=== PATIENT | female | born 1990 | race Caucasian/White ===

== ENCOUNTER 2021-12-03 01:43 | Emergency (ER) | payer OTHER ==
[~2021-12-03] VITALS: Ht 167.6 cm; Wt 61.2 kg
--- NOTE | 2021-12-03 02:28 | NUR ---
Dr. Oropeza at bedside for MSE
[2021-12-03] MEDS ORDERED: OXYC-128 PO (02:49)
[2021-12-03] MEDS ORDERED: IBUPROFEN 600 MG TABLET PO ONE (03:00)
[2021-12-03 03:09] VITALS: BP 122/66
--- NOTE | 2021-12-03 03:09 | NUR ---
Patient discharged to home in stable condition. Written and verbal after care instructions given. Patient verbalizes understanding of instructions. Stressed follow up or return to ER for worsening s/s.
[2021-12-03] MEDS ORDERED: IBUPROFEN 600 MG TABLET ONE (03:10)
== END 2021-12-03 03:11 | disposition home or self-care (01) ==
LOC: ER 01:50
DX: S92.414A Nondisplaced fracture of proximal phalanx of right great toe, initial encounter for closed fracture (principal); W22.8XXA Striking against or struck by other objects, initial encounter; Y92.89 Other specified places as the place of occurrence of the external cause
CPT/HCPCS: 73660; A4663